=== PATIENT | male | born 1975 | race Two or more races ===

== ENCOUNTER 2025-10-13 18:27 | Emergency (ER) | payer MEDICAID, OTHER ==
[~2025-10-13] VITALS: Ht 170.2 cm; Wt 96.3 kg
[2025-10-13 19:07] LABS: Hemoglobin 18.4 g/dL (13.5-17.5)
[2025-10-13 19:08] LABS: Hematocrit 50.3 % (41.0-53.0); Mean Corpuscular Hemoglobin 32.2 pg (28.0-32.0); Mean Corpuscular Volume 88.0 fL (80.0-100.0); Nucleated Red Blood Cells % 0.2 %
--- NOTE | 2025-10-13 19:12 | ED.PDOC ---
History of Present Illness HPI Comments 50-year-old, obese and Fijian-speaking male presents with chief complaint of right-sided facial droop. Patient reports unprovoked, atraumatic onset of right-sided facial droop yesterday at 8:00 a.m.. He reports coming, today, after his employer insist on him being evaluated. Patient comments on being unable to close his right eyelid completely. He denies having any associated headache, dizziness, chest pain, shortness of breath, nausea, vomiting, weakness, numbness or further acute symptoms. Patient denies having any pertinent medical or surgical history. He does not take any medications currently. Upon arrival to ED triage, patient was found hypertensive at 195/123, with no endorsement by the patient on having a history of hypertension in the past. Chief Complaint: Right Sided Weakness Time Seen by MD: 18:35 Reviewed Notes: Nurses Notes, Medications, Allergies Allergies: Coded Allergies: No Known Drug Allergy (Verified Allergy, Unknown, 10/13/25) Information Source: Patient Mode of Arrival: Ambulatory Severity: Moderate Timing: Days Duration: Since onset Prehospital treatment: None Past Medical History PAST MEDICAL HISTORY: Denies Surgical History: Denies all surgeries Family History Family History: Unknown Social History Smoker: Non-Smoker Alcohol: Denies ETOH Use Drugs: Denies Drug Use Lives In: Home All Other Systems: Reviewed and Negative (Comprehensive review of systems are negative unless otherwise stated in HPI) Physical Exam General Appearance: No Apparent Distress, Obese HEENT: Head (Right facial droop, including forhead), Normal ENT Inspection, Pharynx Normal, TMs Normal Neck: Full Range of Motion, Non-Tender, Normal, Normal Inspection Respiratory: Chest Non-Tender, Lungs Clear, No Accessory Muscle Use, No Respiratory Distress, Normal Breath Sounds Cardiovascular: No Edema, No JVD, No Murmur, No Gallop, Normal Peripheral Pulses, Regular Rate/Rhythm Breast Exam: Deferred Gastrointestinal: No Organomegaly, Non Tender, No Pulsatile Mass, Normal Bowel Sounds, Soft Genitalia: Deferred Pelvic: Deferred Rectal: Deferred Extremities: No calf tenderness, Normal capillary refill, Normal inspection, Normal range of motion, Non-tender, No pedal edema Musculoskeletal : Apperance: Normal Neurologic: Alert, environmental monitoring technician II-XII nml as Tested (besides R sided facial droop), No Motor Deficits, Normal Affect, Normal Mood, No Sensory Deficits Cerebellar Function: Normal Reflexes: Normal Skin: Dry, Normal Color, Warm Lymphatic: No Adenopathy Was a procedure done? Was a procedure done?: No EKG EKG : Pulse Rate (adult): 113 [place]: Normal Cardiac Rhythm: ST Block: None Hypertrophy: None ST: Normal Differential Dx Considerations may include: Catalan's palsy, CVA-hemorrhagic versus ischemic, TIA, intracranial hemorrhaging, aneurysm, meningitis, viral, among others X-Ray, Labs, Meds, VS Vital Signs Date Time Temp Pulse Resp B/P (MAP) Pulse Ox O2 Delivery O2 Flow Rate FiO2 10/13/25 20:44 89 157/94 10/13/25 20:07 86 20 94 Room Air* 0 21 10/13/25 20:01 98.0 91 18 161/105 (123) 95 98.0 10/13/25 19:24 100 162/115 10/13/25 19:12 113 10/13/25 18:38 113 10/13/25 18:33 97.6 111 16 195/123 95 97.6 Lab Test 10/13/25 19:43 10/13/25 18:53 10/13/25 18:43 Range/Units Troponin I High Sensitivity 3 L < 3 L </=54 ng/L White Blood Count 9.8 4.4-10.8 10^3/uL Red Blood Count 5.72 4.5-5.90 10^6/uL Hemoglobin 18.4 H 13.5-17.5 g/dL Hematocrit 50.3 41.0-53.0 % Mean Corpuscular Volume 88.0 80.0-100.0 fL Mean Corpuscular Hemoglobin 32.2 H 28.0-32.0 pg Mean Corpuscular Hemoglobin Concent 36.6 H 32.0-36.0 g/dL Red Cell Distribution Width 13.1 11.8-14.3 % Platelet Count 227 140-450 10^3/uL Mean Platelet Volume 8.1 6.9-10.8 fL Neutrophils (%) (Auto) 68.0 37.0-80.0 % Lymphocytes (%) (Auto) 24.5 10.0-50.0 % Monocytes (%) (Auto) 6.2 0.0-12.0 % Eosinophils (%) (Auto) 0.5 0.0-7.0 % Basophils (%) (Auto) 0.8 0.0-2.0 % Neutrophils # (Auto) 6.7 1.6-8.6 10 ^3/uL Lymphocytes # (Auto) 2.4 0.4-5.4 10 ^3/uL Monocytes # (Auto) 0.6 0-1.3 10 ^3/uL Eosinophils # (Auto) 0.1 0-0.8 10 ^3/uL Basophils # (Auto) 0.1 0-0.2 10 ^3/uL Nucleated Red Blood Cells 0.2 % Prothrombin Time 10.7 9.3-11.8 sec Prothrombin Time INR 1.01 0.9-1.15 Activated Partial Thromboplast Time 27.1 24.5-34.5 SEC Sodium Level 137 136-145 mmol/L Potassium Level 3.4 L 3.5-5.1 mmol/L Chloride Level 101 98-107 mmol/L Carbon Dioxide Level 24 20-31 mmol/L Anion Gap 12 5-15 Blood Urea Nitrogen 18 9-23 mg/dL Creatinine 0.97 0.700-1.30 mg/dL Glomerular Filtration Rate Calc 95 >90 mL/min BUN/Creatinine Ratio 18.6 10.0-20.0 Serum Glucose 266 H 74-106 mg/dL Calcium Level 9.6 8.7-10.4 mg/dL B-Type Natriuretic Peptide 2.39 0-100 pg/mL POC Glucose 268 H 70-106 mg/dl Current Medications Medications (Trade) Dose Ordered Sig/Aminah Route Start Time Stop Time Status Last Admin Labetalol HCl (Labetalol HCl) 10 mg ONCE ONCE IV 10/13/25 18:45 10/13/25 18:47 DC 10/13/25 19:24 X-Ray, Labs, Meds, VS Comment Patient presenting with right-sided the patient weakness, last known well yesterday DM. Weakness involves right forehead and right lower face, more consistent with Catalan's palsy been CVA. Patient is significantly hypertensive on arrival, and does not see a doctor regularly, so will evaluate further causes of facial paralysis. Lab work (CBC, BMP) to evaluate for evidence of severe anemia, electrolyte abnormality including hypokalemia, hyperkalemia, hypernatremia, hyponatremia, hyperglycemia, hypoglycemia, etc. EKG and troponin to evaluate for evidence of arrhythmia, ACS, AMI Chest x-ray to evaluate for pneumonia, pneumothorax volume overload. CT head to evaluate for intracranial hemorrhage, large mass, acute infarct, fracture IV labetalol Re-evaluate Social determinant surveillance affecting care: Social determinants of health that will affect the patient's care: Poor health literacy (additional time provided an explanation) Poor access to outpatient care/followup (provided outpatient resources) Time of 1ST Reevaluation: 19:15 Reevaluation 1ST: Unchanged Patient Education/Counseling: Diagnosis, Treatment, Need For Follow Up Family Education/Counseling: No Family Present SEPSIS Sepsis Screen Date sepsis recognized/suspect: Oct 13, 2025 Time Sepsis recognized/suspect: 1832 Recent Procedure: No On Antibiotic Therapy: No Respiratory Rate >20: No Heart Rate >90: Yes Temp<36 C (96.8 F) or >38.3 C: No SBP <90 or MAP <65 mmHG: No New Acute Mental Status Change: No Is the patient on CPAP, BIPAP,: No Physician Orders Chest Portable (10/13/25 18:45) Head Without Contrast (10/13/25 18:45) Electrocardigram (10/13/25 18:45) Electrocardigram (10/13/25 19:45) Electrocardigram (10/13/25 21:45) Vital Signs Date Time Temp Pulse Resp B/P (MAP) Pulse Ox O2 Delivery O2 Flow Rate FiO2 10/13/25 20:44 89 157/94 10/13/25 20:07 86 20 94 Room Air* 0 21 10/13/25 20:01 98.0 91 18 161/105 (123) 95 98.0 10/13/25 19:24 100 162/115 10/13/25 19:12 113 10/13/25 18:38 113 10/13/25 18:33 97.6 111 16 195/123 95 97.6 Laboratory Tests Test 10/13/25 18:53 White Blood Count 9.8 10^3/uL (4.4-10.8) Medications Medications Dose Ordered Sig/Aminah Route Start Time Stop Time Status Last Admin Dose Admin Labetalol HCl 10 mg ONCE ONCE IV 10/13/25 18:45 10/13/25 18:47 DC 10/13/25 19:24 Departure 1 Departure Time of Disposition: 21:17 (On reassessment, patient is still with right facial droop. Labs and imaging unremarkable and blood pressure improved after IV labetalol. Will discharge with p.o. steroids and antivirals. Discussed with patient Outpatient follow-up with PMD. Given strict return precaution. Follow.) Impression: Primary Impression: Catalan's palsy Additional Impressions: Facial droop Uncontrolled hypertension Disposition: HOME / SELF CARE / HOMELESS Condition: Stable e-Prescriptions Valacyclovir Hcl (Valacyclovir Hcl) 500 Mg Tab 1 TAB PO TID for 7 Days, #21 TAB 11 Refills Prov: KANWAL CASTILLO MD 10/13/25 Prednisone (Prednisone) 20 Mg Tab 60 MG PO DAILY for 5 Days, #15 MG Prov: KANWAL CASTILLO MD 10/13/25 Discharged With: Self Critical Care Note Critical Care Time?: Yes (35 min-critical care time only) Stability Stability form required: No Heart Score Heart Score: Heart Score Response (Comments) Value History N/A 0 EKG N/A 0 Age N/A 0 Risk Factors N/A 0 Troponin N/A 0 Total 0 I personally scribed for KANWAL CASTILLO MD ([email or web address]) on 10/13/25 at 19:12. Electronically submitted by Tk Dobbs [email or web address]). KANWAL CASTILLO MD Oct 13, 2025 19:12
[2025-10-13 19:14] LABS: Chloride 101 mmol/L (98-107); Sodium 137 mmol/L (136-145)
[2025-10-13 19:15] LABS: Anion Gap 12 (5-15); Calcium 9.6 mg/dL (8.7-10.4); Carbon Dioxide 24 mmol/L (20-31)
[2025-10-13 19:20] LABS: BUN/Creatinine Ratio 18.6 (10.0-20.0); Blood Urea Nitrogen 18 mg/dL (9-23)
[2025-10-13 19:24] LABS: Glucose 266 mg/dL (74-106); Potassium 3.4 mmol/L (3.5-5.1)
[2025-10-13] MEDS: LABETALOL HCL 20 MG/4 ML VL IV ONE (19:24)
[2025-10-13 19:26] LABS: INR 1.01 (0.9-1.15); Partial Thromboplastin Time 27.1 SEC (24.5-34.5); Prothrombin Time 10.7 sec (9.3-11.8)
--- NOTE | 2025-10-13 19:31 | DVH ---
CHEST RADIOGRAPH Indication: HTN Technique: Single frontal view of the chest was obtained COMPARISON: None FINDINGS: Lines and Tubes: None Lungs: Clear Pleura: No effusion. No pneumothorax. Cardiomediastinal contours: Unremarkable Bones: Unremarkable IMPRESSION: No acute disease.
--- NOTE | 2025-10-13 19:40 | DVH ---
EXAM: CT HEAD WITHOUT CONTRAST INDICATION: facial droop TECHNIQUE: CT of the head without intravenous contrast. Radiation Dose : 1. Head: CT Dose: CTDI volume is 66.52 mGy. Dose-length product is 1310.58 mGy*cm The dose indicators for CT are the volume Computed Tomography (CT) Dose Index (CTDIvol) and the Dose Length Product (DLP), and are measured in units of mGy and mGy-cm, respectively. These indicators are not patient dose, but values generated from the CT scanner acquisition factors. The report includes radiation exposure data for exposures received during this examination. COMPARISON: None FINDINGS: There is no evidence of acute intracranial hemorrhage, extra-axial collection, mass effect, midline shift, herniation or hydrocephalus. The ventricles, sulci and cisterns are age appropriate. The ford-white differentiation is intact. The visualized paranasal sinuses and mastoid air cells are clear. The surrounding soft tissues and osseous structures are unremarkable. IMPRESSION: No acute intracranial abnormality. Radiation optimization: All CT scans at this facility use at least one of these dose optimization techniques: automated exposure control mA and/or kV adjustment per patient size (includes targeted exams where dose is matched to clinical indication) or iterative reconstruction.
--- NOTE | 2025-10-13 19:50 | ECG ---
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
[2025-10-13 20:07] VITALS: PULSE 86; RESP 20; O2SAT 94
[2025-10-13] MEDS ORDERED: PRED20TA2 PO (21:20)
[2025-10-13] MEDS ORDERED: VALA500T33 PO (21:20)
[2025-10-13 21:57] VITALS: BP 53/98; PULSE 88; RESP 20; TEMP 98.2; O2SAT 96
== END 2025-10-13 21:58 | disposition home or self-care (01) ==
LOC: ER 18:27
DX: G51.0 Bell's palsy (principal); I10 Essential (primary) hypertension; Z79.899 Other long term (current) drug therapy; Z86.2 Personal history of diseases of the blood and blood-forming organs and certain disorders involving the immune mechanism
CPT/HCPCS: 36415; 70450; 71045; 80048; 82947; 82962; 83880; 84484; 85025; 85610; 85730; 93005; 96374; 99291